=== PATIENT | female | born 1940 | race Caucasian/White ===

== ENCOUNTER 2020-07-16 16:08 | Outpatient (REF) | payer MEDICARE, SELFPAY ==
[2020-07-16 13:50] LABS: HCT 42.7 % (36.0-46.0); HGB 13.8 g/dL (11.2-15.7); MCH 30.6 pg (27.0-33.0); MCHC 32.3 % (32.0-36.0); MCV 94.7 fL (80-95); Platelet Count 264 10^3/uL (130-400); RBC 4.51 10^6/uL (3.93-5.22); RDW 11.9 % (11.7-14.6); RDW-SD 41.1 fL; WBC 4.95 10^3/uL (4.4-10.8)
[2020-07-16 14:56] LABS: ALT 22 U/L (14-59); AST 19 U/L (15-37); Anion Gap 8.7 mmol/L (3-11); BUN 14 mg/dL (7-18); CO2 28.3 mmol/L (21.0-32.0); CREATININE 0.9 mg/dL (0.55-1.02); Calcium 9.5 mg/dL (8.5-10.1); Calculated LDL 121 mg/dL (<100); Chloride 105 mmol/L (98-107); Cholesterol 191 mg/dL (<200); Glucose 80 mg/dL (74-106); HDL Cholesterol 49 mg/dL (40-60); Potassium 4.7 mmol/L (3.5-5.1); Sodium 142 mmol/L (136-145); Triglyceride 106 mg/dL (<150)
== END 2020-07-16 16:09 | disposition home or self-care (01) ==
LOC: NCHCN 16:08
PROVIDERS: PCP Nurse Practitioner Family; Visit Provider Nurse Practitioner Family
DX: I10 Essential (primary) hypertension (principal)
CPT/HCPCS: 80048; 80061; 85027; 84450; 84460

== ENCOUNTER 2022-01-23 09:10 | Emergency (ER) | payer MEDICARE, SELFPAY ==
[2022-01-23 09:26] VITALS: BP 146/77; PULSE 90; RESP 18; O2SAT 93
--- NOTE | 2022-01-23 09:43 | ED.GENADUL_ITS ---
Discharge Plan Disposition Patient Disposition: HOME Condition: Stable Discharge Details Chief Complaint: Sorethroat Clinical Impression: Pharyngitis, acute Primary Care Provider: Earlene Youngblood ED Provider: Devaughn Velarde Home Meds and New Rx's Prescriptions: No Action No Known Home Meds Discharge Instructions Instructions: Pharyngitis (ED) Additional Instructions: Please follow-up with your primary care physician. Please return to the emergency department you develop any worsening symptoms such as trouble breathing difficulty swallowing change in your voice fevers chills or other abnormal symptoms. Medical Decision Making 81-year-old female presents with sore throat for the past several days, some pain with swallowing, no respiratory distress hemodynamically stable normoxic, afebrile, tolerating secretions, slight raspiness to voice without stridor. Midline uvula oropharynx unremarkable likely viral pharyngitis lower suspicion for bacterial pharyngitis or deep space infection of the head or neck such as retropharyngeal abscess peritonsillar abscess or Cristian's angina. Trial of dexamethasone. COVID swab. Home care instructions and return precautions given. HPI General Date/Time Provider Initiated Documentation: 01/23/22 09:23 . HPI Narrative: 81-year-old female presents with sore throat over the past 1 days, has noticed a raspiness to her voice. Pain with swallowing. No drooling no choking no trouble breathing. Related Data Home Medications Medication Instructions Recorded Confirmed Unknown [No Known Home Meds] 11/19/15 11/19/15 Allergies Allergy/AdvReac Type Severity Reaction Status Date / Time No Known Allergies Allergy Unverified 01/23/22 09:29 General Stated Complaint: Sorethroat RUTH: 4 Review of Systems Narrative: Review of Systems Constitutional: negative Eyes: negative ENT: Sore throat Cardiovascular: negative Respiratory: negative Gastrointestinal: negative : negative Musculoskeletal: negative Skin: negative Neurologic: negative Psych: negative PFSH All Active Problems (Updated 01/23/22 @ 09:46 by Devaughn Velarde MD) Pharyngitis, acute (Acute) Social History Smoking/Tobacco Use Status: Never Smoking risk assessment performed?: Yes Alcohol Intake: never Drug use: Never Substance use type: does not use Do you feel safe at home: Yes Do you feel safe in your relationship?: Yes Exam Narrative Exam Narrative: Physical Examination General: alert, awake, cooperative, resting comfortably, no acute distress HEENT: normocephalic, atraumatic; PERRL, EOM intact, conjunctiva normal; no nasal discharge; moist mucous membranes, oral and pharyngeal mucosa normal, tolerating secretions; no stridor, slight raspiness to voice Neck: supple, trachea midline; full ROM Chest: normal to inspection Respiratory: normal respiratory effort, speaking in full sentences, clear to auscultation, no wheezing, rales or rhonchi Cardiac: regular rate, regular rhythm, S1S2 intact, no murmurs rubs or gallops GI: abdomen soft, non-tender, non-distended; no palpable mass or hepatosplenomegaly Skin: no lesions, rashes or trauma appreciated Neuro: AAOx3, normal speech, moving all extremities Psych: Appropriate mood and affect Course Vital Signs Vital signs: Vital Signs Pulse 90 01/23/22 09:26 Respiratory Rate 18 01/23/22 09:26 Blood Pressure 146/77 H 01/23/22 09:26 Pulse Oximetry 93 01/23/22 09:26 Pulse 90 01/23/22 09:26 Respiratory Rate 18 01/23/22 09:26 Respiratory Effort 01/23/22 09:30 Blood Pressure 146/77 H 01/23/22 09:26 Blood Pressure Position Sitting 01/23/22 09:26 Pulse Oximetry 93 01/23/22 09:26 Oxygen Delivery Method Room Air 01/23/22 09:26 Oxygen Flow Rate 0 01/23/22 09:26 Pain Level 10 01/23/22 09:26
[2022-01-23] MEDS: Dexamethasone 10 MG/ML VIAL IM (09:55)
[2022-01-23] MEDS: Lidocaine 2% Viscous 15 ML CUP PO (10:11)
[2022-01-24 15:00] LABS: COVID-19 RT-PCR UVMMC Result Positive (Negative)
--- NOTE | 2022-01-24 16:38 | W.ED.FU ---
Date of service: 01/23/22 Follow Up Plan: Patient was contacted and informed of her positive COVID result. Since she is already had symptoms now for 6 days she was recommended to wear mask for an additional 5 days. Patient informed that she would not qualify for Paxlovid but did discuss other alternative treatments if needed. Patient stated that she would contact her primary care provider and states understanding of quarantine and mask wearing along with isolation as per state recommendations. Patient stated no further questions or concerns after our discussion over the phone. Patient did state that she had an improvement of symptoms since being seen yesterday.
== END 2022-01-23 10:07 | disposition home or self-care (01) ==
PROVIDERS: Emergency Provider Emergency Medicine; PCP Nurse Practitioner Family
DX: U07.1 COVID-19 (principal)
CPT/HCPCS: 96372; 99283; 99284; U0003; U0005; J1100

== ENCOUNTER 2022-03-07 11:52 | Day surgery (SDC) | payer MEDICARE, SELFPAY ==
[2022-03-07] MEDS: Tropicam./Phenyleph. (1/2.5%) 5 ML BTL OD ×3 (12:39→12:57)
[2022-03-07 12:40] VITALS: BP 181/65; PULSE 58; RESP 16; TEMP 36.5; O2SAT 98
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
[2022-03-07 13:07] VITALS: BMI 38.6
[2022-03-07] MEDS: Tetracaine 0.5% 4 ML BTL OD (13:26)
[2022-03-07] MEDS: Balanced Salt Soln.-PLUS 500 ML BAG (13:27)
[2022-03-07] MEDS: Lidocaine 2% Jelly 6 ML SYR (13:27)
[2022-03-07] MEDS: Duovisc Viscoelastic System EACH 1 EACH (13:29)
[2022-03-07] MEDS: Povidone-Iodine Ophth 30 ML BTL (13:29)
[2022-03-07 13:42] VITALS: BP 168/92; PULSE 58; RESP 16; TEMP 35.9; O2SAT 97
--- NOTE | 2022-03-07 13:44 | W.PM.DSUDISC ---
Discharge Plan Disposition Patient Disposition: HOME Condition: Good Discharge Details Attending Provider: Devaughn Kay Primary Care Provider: Earlene Youngblood Home Meds and New Rx's Prescriptions: No Action cholecalciferol (vitamin D3) [Vitamin D3] 25 mcg (1,000 unit) Capsule 1,000 unit PO DAILY Discharge Instructions Stand Alone Forms: Post-op Topical Cataract, Michael Iqbal (DSU) Discharge Orders Discharge Orders: Discharge Order (Routine); Ordered 03/07/22 Ordered By: Devaughn Kay DS: Diagnosis Discharge Diagnosis (1) Nuclear sclerotic cataract of right eye: Status: Resolved (2) Cortical cataract of right eye: Status: Resolved (3) Posterior subcapsular age-related cataract, right eye: Status: Resolved
--- NOTE | 2022-03-07 13:45 | ROE_ITS ---
Date of service: 03/07/22 Time of Service: 13:45 Operative Note Operative Note DATE OF PROCEDURE: 03/07/22 PRE-OP DIAGNOSIS: Nuclear/cortical/posterior subcapsular cataract, right eye POST-OP DIAGNOSIS: same PROCEDURE: Cataract extraction using phacoemulsification with intraocular lens implant, right eye SURGEON: eDvaughn Kay ANESTHESIA TYPE: Local By Surgeon and MAC Refer to Anesthesia Record ESTIMATED BLOOD LOSS: 0 PATHOLOGY: none sent COMPLICATIONS: None Patient was transported to: same day Patient's condition: stable Implants: Lorne & Lorne/SITA Tecnis [id number] Indications: Progressive visual loss due to cataract, right eye Procedure Description: CATARACT SURGERY OPERATIVE REPORT PREOPERATIVE DIAGNOSIS: 1. Nuclear/cortical/posterior subcapsular cataract, right eye POSTOPERATIVE DIAGNOSIS: Same OPERATION: 1. Cataract extraction using phacoemulsification with posterior chamber intraocular lens implant, right eye. IOL: IOL Journeyman Machinist/Model: Lorne & Lorne / SITA Tecnis [id number] IOL Power: + 18.0 diopters IOL Serial Number: [id number] Optic Diameter: 6.0mm Haptic/Overall Diameter: 13.0mm PHACO INFO: Sundeep [place] Metechurion Vision System with OZil and Active Fluidics Cumulative Dispersed Energy (CDE): 9.42 seconds SURGEON: Devaughn Kay MD, ROLDAN ANESTHESIA: Monitored Anesthesia Care (MAC), with local sub-tenon's anesthetic infiltration COMPLICATIONS: None SPECIMENS: None INDICATIONS FOR PROCEDURE: The patient is a 81-year-old lady with history of diminished visual acuity in her right eye secondary to the development of nuclear/cortical/posterior subcapsular cataract. She is significantly symptomatic that she desires cataract surgery and attempt to improve and maximize her vision. The option of cataract surgery was offered to the patient and she wished to proceed PROCEDURE: The correct surgical eye was identified and marked as the right eye and the pupil was dilated in the preoperative area using mydriatics and cycloplegics. The dilated pupil size was 6.0 mm. The patient elected to proceed without oral sedation. The patient was brought to the operating room where cardiopulmonary monitoring was instituted and surgical time-out was performed, confirming the correct operative eye and IOL power. Topical anesthesia was administered and ophthalmic povidone-iodine 5% was instilled into the conjunctival fornices. Lidocaine gel was applied to the cornea and the alexus-ocular area was prepped with Betadine 10% solution and draped in the usual sterile fashion for intraocular surgery, including an aperture drape. A Tegaderm transparent film dressing was cut in half and used to cover the lashes and lid margins. Care was taken to sequester the lashes and lid margins under the Tegaderm dressing. A lid speculum was placed between the lids of the operative eye and the Sundeep LuxOR Revalia operating microscope was maneuvered into position. Christiano scissors were then used to make a conjunctival buttonhole approximately 6mm posterior to the limbus in the inferonasal quadrant. Blunt dissection was carried out to expose bare sclera, and a blunt-tipped sub-tenon?s anesthesia cannula was introduced and passed posteriorly along the globe where non- preserved plain lidocaine was injected into posterior sub-Tenon?s space. A sideport knife was used to make a paracentesis port inferotemporally. Intraocular phenylephrine/lidocaine was injected into the anterior chamber. The anterior chamber was filled with viscoelastic. A keratome knife was used to construct a 2-plane near-clear corneal tunnel extending 2.0mm into clear cornea superiortemporally. A flap was raised on the anterior capsule and capsulorhexis forceps were used to complete a continuous curvilinear capsulorhexis of 5.0 mm. Balanced salt solution was then used to perform cortical cleaving hydrodisse ction and nuclear hydrodelineation until the lens could be freely rotated within the capsular bag. The lens nucleus was then disassembled and removed within the capsular bag and iris plane using phacoemulsification. Residual cortical material was removed using the I/A handpiece. The posterior capsule was carefully polished to remove as much residual lens epithelial cells as safely possible. The capsular bag was then inflated and the anterior chamber deepened with viscoelastic. The lens implant described above was inserted into the capsular bag using the SITA [place] Injector. A Kuglen hook was used to dial the IOL into position. Residual viscoelastic was then removed first from posterior to the IOL, then from the anterior chamber using the I/A handpiece. The lens implant was noted to center nicely within the capsular bag. The incisions were stromally hydrated, and the anterior chamber was reformed using BSS. Then 0.5cc of moxifloxacin 1.0mg/ml were injected into the capsular bag and anterior chamber. The incisions were checked with a Weck spear and found to be secure. Several drops of ophthalmic povidone-iodine 5% were then applied to the eye followed by two drops of Imprimis combination prednisolone/moxifloxacin/nepafenac solution. The drapes were removed and a clear plastic protective eye shield was placed over the eye. The patient was then returned to [facility] Day Surgery in stable condition.
--- NOTE | 2022-03-07 14:34 | W.ANESPOSTOP ---
Postoperative Evaluation Date, Time and Location Date Performed: 03/07/22 Time Performed: 14:34 Patient Location: Day Surgery Unit Vital Signs Most Recent Imported Vital Signs: Most Recent Vital Signs Temp Pulse Resp BP Pulse Ox 35.9 C L 58 L 16 168/92 H 97 03/07/22 13:42 03/07/22 13:42 03/07/22 13:42 03/07/22 13:42 03/07/22 13:42 Pain Score Most Recent Pain Score: Most Recent Pain Score Pain Level 0 03/07/22 13:42 Assessment Mental Status: Awake (Alert & Oriented to Patient Baseline) Airway and Respiratory Function: Patent airway with normal (patient baseline) respiratory exam Cardiovascular Function: Hemodynamically Stable Hydration Status: Adequately Hydrated Nausea & Vomiting: No Nausea or Vomiting Pain: Pt. Denies Any Pain Peripheral Nerve Block: Patient did not receive a nerve block
== END 2022-03-07 14:00 | disposition home or self-care (01) ==
LOC: SUR 11:53
PROVIDERS: PCP Nurse Practitioner Family; Visit Provider Ophthalmology
PROC: (CPT 66984; principal; 2022-03-07 13:30)
DX: H25.041 Posterior subcapsular polar age-related cataract, right eye (principal); I10 Essential (primary) hypertension
CPT/HCPCS: 66984; V2632

== ENCOUNTER 2023-02-15 16:28 | Outpatient (REF) | payer MEDICARE, SELFPAY | END 2023-02-15 16:29 | disposition home or self-care (01) | LOC: NCHCN 16:28 | PROVIDERS: PCP Nurse Practitioner Family; Visit Provider Nurse Practitioner Family | DX: R30.0 Dysuria (principal) | CPT/HCPCS: 87077; 87086; 87186 ==